=== PATIENT | female | born 1985 | race Caucasian/White ===

== ENCOUNTER 2020-09-18 12:21 | Emergency (ER) | payer OTHER ==
[~2020-09-18 12:21] MED LIST: BACTRIM DS TAB1 EACH PO; BIRTH CONTROL; KEFLEX500 MG
== END 2020-09-18 12:34 | disposition left against medical advice (07) ==
LOC: M.ERS 12:21
DX: Z53.21 Procedure and treatment not carried out due to patient leaving prior to being seen by health care provider (principal)